=== PATIENT | female | born 1995 | race Hispanic/Latino ===

== ENCOUNTER → 2025-07-12 13:26 | Outpatient (CLI) | payer OTHER, SELFPAY ==
[2025-07-12 14:28] LABS: HEMOLYSIS < 15 (0-50); Iron 130 ug/dL (37-170)
[2025-07-12 14:29] LABS: Cholesterol 143 mg/dL (140-199); HDL Cholesterol 46 mg/dL (40-60); Triglycerides 145 mg/dL (35-150)
[2025-07-12 14:39] LABS: Percent Iron Saturation 37 % (15-50); Total Iron Binding Capacity 355 ug/dL (265-497); Transferrin 297 mg/dL (206-381)
[2025-07-12 14:59] LABS: TSH w/ Reflex to FT4 1.20 uIU/mL (0.47-4.68)
[2025-07-12 16:19] LABS: Vitamin D 25 Hydroxy (D3) 36.3 ng/mL (30.0-100.0)
== END ==
PROVIDERS: PCP Nurse Practitioner Family; Referring Provider Nurse Practitioner Family; Visit Provider Nurse Practitioner Family
DX: Z31.69 Encounter for other general counseling and advice on procreation (principal); E55.9 Vitamin D deficiency, unspecified; R53.83 Other fatigue
CPT/HCPCS: 36415; 80061; 82306; 83540; 83550; 84443

== ENCOUNTER 2025-10-04 13:34 | Emergency (ER) | payer OTHER, SELFPAY ==
[2025-10-04] VITALS (10 sets, daily range): BP systolic 95–117; BP diastolic 54–69; PULSE 98–135; RESP 16–18; TEMP 36.8–36.9; O2SAT 95–100; BMI 29.2
[2025-10-04 14:20] LABS: Add Manual Diff / Slide Review NO; Hematocrit 39.0 % (36-46); Hemoglobin 13.3 g/dL (12.0-16.0); Lymphocytes Absolute Auto 400 /uL (1100-4500); Mean Corpuscular HGB Conc 34.1 % (30-36); Mean Corpuscular Hemoglobin 27.1 PG (26-34); Mean Corpuscular Volume 79.6 fL (80-100); Platelet Count 268 X10^3/uL (150-400)
[2025-10-04 14:30] LABS: Alanine Aminotransferase 23 IU/L (<35); Albumin 4.6 g/dL (3.5-5.0); Albumin Globulin Ratio 1.2 (1.0-2.8); Alkaline Phosphatase 99 U/L (38-126); Blood Urea Nitrogen 15 mg/dL (7-17); Calcium 9.6 mg/dL (8.4-10.2); Carbon Dioxide 20 mmol/L (22-32); Chloride 106 mmol/L (98-107); Estimated Glomerular Filt Rate > 60 mL/min (>60); Globulin 4.0 g/dL (1.7-4.1); Glucose 119 mg/dL (70-99); HEMOLYSIS < 15 (0-50); Lipase 95 U/L (23-300); Potassium 4.0 mmol/L (3.4-5.1); Sodium 137 mmol/L (137-145); Total Protein 8.6 g/dL (6.3-8.2)
[2025-10-04] MEDS: ONDANSETRON 4 MG/2 ML INJ IV (14:54)
[2025-10-04] MEDS: MORPHINE 2 MG/ML INJ IV (14:54)
--- NOTE | 2025-10-04 15:10 | PC.NURSE ---
Call to lab to run urine and preg
--- NOTE | 2025-10-04 15:35 | DI.CT.S_ITS ---
PROCEDURE: CT ABDOMEN PELVIS W CON INDICATIONS: diffuse abdominal pain, n, v, d TECHNIQUE: After the administration of intravenous contrast, axial sections acquired from the lung bases to the pubic symphysis. Coronal and sagittal reformats were performed. For radiation dose reduction, the following was used: automated exposure control, adjustment of mA and/or kV according to patient size. COMPARISON: None. FINDINGS: Image quality: Diagnostic. Lower Chest: No significant findings. ABDOMEN: Liver: No solid mass. Gallbladder: Cholecystectomy Biliary ducts: No biliary dilation. Pancreas: No ductal dilation. Spleen: Size is within normal limits. Adrenal Glands: No adrenal nodules. Kidneys and Ureters: No hydronephrosis. No solid mass. No complex renal cystic lesion which requires follow up. Stomach and Bowel: The appendix measures at the upper limits of normal at 6 mm. No significant surrounding inflammatory change is seen. There is moderate wall thickening seen involving the distal colon, with mild surrounding inflammatory change. The more proximal colon is within normal limits. No dilated loops of small bowel are seen. Peritoneum: No abnormal intraperitoneal fluid. No free air. Ventral Wall: No significant ventral hernia. Abdominal Nodes: No retroperitoneal or mesenteric adenopathy by size criteria. Vessels: Aorta and inferior vena cava are normal in size. PELVIS: Pelvic Organs: No adnexal masses are seen on either side. Bladder: No bladder wall thickening, accounting for underdistention. Pelvic Nodes: No enlarged lymph nodes. Miscellaneous: No inguinal hernias are seen. Bones: No aggressive osseous abnormality. IMPRESSION: Moderate distal colonic wall thickening can be seen. Please correlate with potential infectious and inflammatory causes of colitis. No findings of perforation or abscess can be seen. The appendix measures at the upper limits of normal, yet without surrounding inflammatory change. Additional findings: Cholecystectomy the Dictated by: Ramon Diaz M.D. on 10/04/2025 at 15:27 Approved by: Ramon Diaz M.D. on 10/04/2025 at 15:30
[2025-10-04] MEDS: SODIUM CHLORIDE 0.9% 1,000 ML 1000 ML IV (15:41)
[2025-10-04 15:47] LABS: Appearance Urine UA CLOUDY; Bilirubin Urine UA NEGATIVE (NEGATIVE); Color Urine UA RED; Glucose Urine UA NEGATIVE (Negative); Ketones Urine UA NEGATIVE (NEGATIVE); Leukocyte Esterase Urine UA TRACE (NEGATIVE); Nitrite Urine UA NEGATIVE (Negative); Occult Blood Urine UA 3+ (Negative); Protein Urine UA 2+ (Negative); Specific Gravity Urine UA 1.015 (1.000-1.035); Urobilinogen Urine UA 0.2 E.U./dL (0.2)
[2025-10-04 15:49] LABS: Culture Indicated Urine Specimen Cultured; pH Urine UA 7.0 (4.5-8.0)
--- NOTE | 2025-10-04 16:24 | ED_ITS ---
HPI - Abdominal Pain <Fiona Hernandez MD - Last Filed: 10/04/25 19:33> General Chief Complaint: Abdominal Pain Stated Complaint: N/V This morning Time Seen by Provider: 10/04/25 14:14 Source: patient Mode of arrival: Ambulatory History of Present Illness HPI narrative: Patient is a 29-year-old female who presents today with abdominal pain, nausea, vomiting, diarrhea since 8:00 a.m. past medical history significant for cholecystectomy. She states that she has had 5 watery stools this morning and 1 episode of vomiting. States that her 08/17 abdominal pain started centrally and is now diffuse and nonfocal. Menses started today. She denies any dysuria, frequency, urgency. Patient ate cereal last night. No other family members with similar symptoms. She has never had similar symptoms in the past. Related Data Home Medications ?Medication ?Instructions ?Recorded ?Confirmed buspirone 15 mg tablet 15 mg PO BID Anxiety 5 07/12/25 doxepin 6 mg tablet 6 mg PO DAILY Insomnia 07/1207/12/25 venlafaxine 150 mg 150 mg PO DAILY Depression 0 07/12/25 07/12/25 capsule,extended release 24 hr Previous Rx's ?Medication ?Instructions ?Recorded ciprofloxacin HCl 500 mg tablet 500 mg PO BID 10 days #20 tabs 10/04/25 metronidazole 500 mg tablet 500 mg PO TID #30 tabs Allergies Allergy/AdvReac Type Severity Reaction Status Date / Time No Known Drug Allergies Allergy Verified 10/04/25 14:02 Review of Systems <Fiona Hernandez MD - Last Filed: 10/04/25 19:33> Review of Systems Narrative: See HPI. Patient History <Fiona Hernandez MD - Last Filed: 10/04/25 19:33> Medical History (Updated 10/04/25 @ 18:45 by Fiona Hernandez MD) Abnormal Pap smear of cervix (11/08/17) Surgical History (Updated 10/04/25 @ 18:32 by Fiona Hernandez MD) [place] teeth removed History of cholecystectomy (11/08/18) Social History Smoking Status: Current every day smoker Smoking Status: Current every day smoker Exam <Fiona Hernandez MD - Last Filed: 10/04/25 19:33> Initial Vital Signs Initial Vital Signs: Vital Signs Temperature 98.5 F 10/04/25 14:02 Pulse Rate 135 H 10/04/25 14:02 Respiratory Rate 18 10/04/25 14:02 Blood Pressure 117/67 10/04/25 14:02 Pulse Oximetry 97 10/04/25 14:02 Oxygen Delivery Method Room Air 10/04/25 14:02 Vital signs reviewed. Tachycardia (HR 135) however patient currently sitting up in actively in pain. Const Other: Well-developed and well-nourished. In acute distress. Resp Other: Clear to auscultation all lung howard. Cardio Other: Tachycardic, no murmurs, rubs, gallops. 2+ radial pulses. 2+ DP pulses. GI Other: Soft, nondistended, diffuse tenderness to palpation in left lower quadrant, suprapubic and right lower quadrant, no rebound and not peritonitic. Extrem Other: No peripheral edema. <Yohannes Edward MD - Last Filed: 10/05/25 01:45> Initial Vital Signs Initial Vital Signs: Vital Signs Temperature 98.5 F 10/04/25 14:02 Pulse Rate 135 H 10/04/25 14:02 Respiratory Rate 18 10/04/25 14:02 Blood Pressure 117/67 10/04/25 14:02 Pulse Oximetry 97 10/04/25 14:02 Oxygen Delivery Method Room Air 10/04/25 14:02 Course <Fiona Hernandez MD - Last Filed: 10/04/25 19:33> Orders Ordered: Discontinued Medications Acetaminophen (Acetaminophen 325 Mg Tablet) 650 mg PO NOW ONE Stop: 10/04/25 17:57 Last Admin: 10/04/25 18:21 Dose: 650 mg Documented By: PAPI Hydrocodone Bitart/Acetaminophen (Hydrocodone/Acet 5/325 Prepack) 1 bottle MISC DIRECTED ONE Stop: 10/04/25 19:17 Last Admin: 10/04/25 19:37 Dose: 1 bottle Documented By: PAPI Ciprofloxacin (Ciprofloxacin 250 Mg Tablet) 500 mg PO NOW ONE Stop: 10/04/25 18:24 Last Admin: 10/04/25 18:27 Dose: 500 mg Documented By: PAPI Dicyclomine HCl (Dicyclomine 10 Mg Capsule) 10 mg PO NOW ONE Stop: 10/04/25 17:06 Last Admin: 10/04/25 17:13 Dose: 10 mg Documented By: PAPI Sodium Chloride (Normal Saline 0.9%) 1,000 mls @ 1,000 mls/hr IV BOLUS ONE Stop: 10/04/25 16:22 Last Infusion: 10/04/25 17:17 Dose: Infused Documented By: Admin: 10/04/25 15:41 Dose: 1,000 mls/hr Documented By: PAPI Sodium Chloride (Normal Saline 0.45%) 1,000 mls @ 1,000 mls/hr IV BOLUS ONE Stop: 10/04/25 18:16 Last Infusion: 10/04/25 18:54 Dose: Infused Documented By: Admin: 10/04/25 17:47 Dose: 1,000 mls/hr Documented By: RAQUEL Ketorolac Tromethamine (Ketorolac 30 Mg/Ml Vial) 15 mg IV NOW ONE Stop: 10/04/25 18:23 Last Admin: 10/04/25 18:27 Dose: 15 mg Documented By: PAPI Metronidazole (Metronidazole 500 Mg Tablet) 500 mg PO NOW ONE Stop: 10/04/25 18:24 Last Admin: 10/04/25 18:27 Dose: 500 mg Documented By: PAPI Morphine Sulfate (Morphine 2 Mg/Ml Inj) 2 mg IV NOW ONE Stop: 10/04/25 14:48 Last Admin: 10/04/25 14:54 Dose: 2 mg Documented By: PAPI Nitrofurantoin Macrocrystals (Nitrofurantoin Er 100 Mg Capsule) 100 mg PO NOW ONE Stop: 10/04/25 17:06 Last Admin: 10/04/25 17:13 Dose: 100 mg Documented By: PAPI Ondansetron HCl (Ondansetron 4 Mg/2 Ml Inj) 4 mg IV NOW PRN PRN Reason: Nausea And Vomiting Last Admin: 10/04/25 14:54 Dose: 4 mg Documented By: PAPI Ondansetron HCl (Ondansetron 4 Mg Odt) 4 mg PO NOW PRN PRN Reason: Nausea And Vomiting Ondansetron HCl (Ondansetron 4 Mg Odt Prepack) 1 bottle MISC DIRECTED ONE Stop: 10/04/25 19:19 Last Admin: 10/04/25 19:37 Dose: 1 bottle Documented By: PAPI Tramadol HCl (Tramadol 50 Mg Prepack) 1 bottle MISC DIRECTED ONE Stop: 10/04/25 19:13 Reevaluation(s) Reevaluation #1: 1628 Blood pressure noted to be hypotensive however her blood pressure cuff was incorrectly positioned on her arm. Repeat 105/90s. Her pain is 5/10 now. Informed patient that her workup included urinalysis that appears to be consistent with UTI. Awaiting results of imaging. Vital Signs Vital signs: Vital Signs - 8 hr 10/04/25 18:31 10/04/25 18:32 10/04/25 18:32 Pulse Rate 117 H 109 H Respiratory Rate 16 Blood Pressure 110/68 Pulse Oximetry 96 98 10/04/25 19:00 10/04/25 19:00 Pulse Rate 98 H Respiratory Rate 16 Blood Pressure 104/63 Pulse Oximetry 96 <Yohannes Edward MD - Last Filed: 10/05/25 01:45> Orders Ordered: Discontinued Medications Acetaminophen (Acetaminophen 325 Mg Tablet) 650 mg PO NOW ONE Stop: 10/04/25 17:57 Last Admin: 10/04/25 18:21 Dose: 650 mg Documented By: PAPI Hydrocodone Bitart/Acetaminophen (Hydrocodone/Acet 5/325 Prepack) 1 bottle MISC DIRECTED ONE Stop: 10/04/25 19:17 Last Admin: 10/04/25 19:37 Dose: 1 bottle Documented By: PAPI Ciprofloxacin (Ciprofloxacin 250 Mg Tablet) 500 mg PO NOW ONE Stop: 10/04/25 18:24 Last Admin: 10/04/25 18:27 Dose: 500 mg Documented By: PAPI Dicyclomine HCl (Dicyclomine 10 Mg Capsule) 10 mg PO NOW ONE Stop: 10/04/25 17:06 Last Admin: 10/04/25 17:13 Dose: 10 mg Documented By: PAPI Sodium Chloride (Normal Saline 0.9%) 1,000 mls @ 1,000 mls/hr IV BOLUS ONE Stop: 10/04/25 16:22 Last Infusion: 10/04/25 17:17 Dose: Infused Documented By: Admin: 10/04/25 15:41 Dose: 1,000 mls/hr Documented By: PAPI Sodium Chloride (Normal Saline 0.45%) 1,000 mls @ 1,000 mls/hr IV BOLUS ONE Stop: 10/04/25 18:16 Last Infusion: 10/04/25 18:54 Dose: Infused Documented By: Admin: 10/04/25 17:47 Dose: 1,000 mls/hr Documented By: RAQUEL Ketorolac Tromethamine (Ketorolac 30 Mg/Ml Vial) 15 mg IV NOW ONE Stop: 10/04/25 18:23 Last Admin: 10/04/25 18:27 Dose: 15 mg Documented By: PAPI Metronidazole (Metronidazole 500 Mg Tablet) 500 mg PO NOW ONE Stop: 10/04/25 18:24 Last Admin: 10/04/25 18:27 Dose: 500 mg Documented By: PAPI Morphine Sulfate (Morphine 2 Mg/Ml Inj) 2 mg IV NOW ONE Stop: 10/04/25 14:48 Last Admin: 10/04/25 14:54 Dose: 2 mg Documented By: PAPI Nitrofurantoin Macrocrystals (Nitrofurantoin Er 100 Mg Capsule) 100 mg PO NOW ONE Stop: 10/04/25 17:06 Last Admin: 10/04/25 17:13 Dose: 100 mg Documented By: PAPI Ondansetron HCl (Ondansetron 4 Mg/2 Ml Inj) 4 mg IV NOW PRN PRN Reason: Nausea And Vomiting Last Admin: 10/04/25 14:54 Dose: 4 mg Documented By: PAPI Ondansetron HCl (Ondansetron 4 Mg Odt) 4 mg PO NOW PRN PRN Reason: Nausea And Vomiting Ondansetron HCl (Ondansetron 4 Mg Odt Prepack) 1 bottle MISC DIRECTED ONE Stop: 10/04/25 19:19 Last Admin: 10/04/25 19:37 Dose: 1 bottle Documented By: PAPI Tramadol HCl (Tramadol 50 Mg Prepack) 1 bottle MISC DIRECTED ONE Stop: 10/04/25 19:13 Vital Signs Vital signs: Vital Signs - 8 hr 10/04/25 18:31 10/04/25 18:32 10/04/25 18:32 Pulse Rate 117 H 109 H Respiratory Rate 16 Blood Pressure 110/68 Pulse Oximetry 96 98 10/04/25 19:00 10/04/25 19:00 Pulse Rate 98 H Respiratory Rate 16 Blood Pressure 104/63 Pulse Oximetry 96 MDM - Abdominal Pain <Fiona Hernandez MD - Last Filed: 10/04/25 19:33> Lab Data 10/04/25 14:08 10/04/25 14:08 Labs: Lab Results 10/04/25 10/04/25 10/04/25 Range/Units 14:08 14:09 15:31 WBC 13.2 H (4.5-11.0) X10^3/uL RBC 4.90 (4.0-5.2) X10^6/uL Hgb 13.3 (12.0-16.0) g/dL Hct 39.0 (36-46) % MCV 79.6 L (80-100) fL MCH 27.1 (26-34) PG MCHC 34.1 (30-36) % RDW 13.7 (11.6-14.8) % Plt Count 268 (150-400) X10^3/uL Neut % (Auto) 93.2 H (50-75) % Lymph % (Auto) 3.1 L (25-40) % Morgan % (Auto) 2.6 L (3-14) % Eos % (Auto) 0.7 L (2-4) % Baso % (Auto) 0.4 (0-2) % Neut # (Auto) 29607 H (8121-4114) /uL Lymph # (Auto) 400 L (2733-1024) /uL Morgan # (Auto) 300 (0-900) /uL Eos # (Auto) 100 (0-450) /uL Baso # (Auto) 100 (0-100) /uL Sodium 137 (137-145) mmol/L Potassium 4.0 (3.4-5.1) mmol/L Chloride 106 (98-107) mmol/L Carbon Dioxide 20 L (22-32) mmol/L BUN 15 (7-17) mg/dL Creatinine 0.70 (0.52-1.04) mg/dL Estimated GFR > 60 (>60) mL/min BUN/Creatinine Ratio 21.4 (6-22) Glucose 119 H (70-99) mg/dL Calcium 9.6 (8.4-10.2) mg/dL Total Bilirubin 0.5 (0.2-1.3) mg/dL AST 32 (14-36) IU/L ALT 23 (<35) IU/L Alkaline Phosphatase 99 (38-126) U/L Total Protein 8.6 H (6.3-8.2) g/dL Albumin 4.6 (3.5-5.0) g/dL Globulin 4.0 (1.7-4.1) g/dL Albumin/Globulin Ratio 1.2 (1.0-2.8) Lipase 95 (23-300) U/L Urine Color Red Urine Appearance Cloudy Urine pH 7.0 (4.5-8.0) Ur Specific Pollard 1.015 (1.000-1.035) Urine Protein 2+ H (Negative) Urine Glucose (UA) Negative (Negative) g/dL Urine Ketones Negative (NEGATIVE) Urine Occult Blood 3+ H (Negative) Urine Nitrate Negative (Negative) Urine Bilirubin Negative (NEGATIVE) Urine Urobilinogen 0.2 (0.2) E.U./dL Ur Leukocyte Esterase Trace H (NEGATIVE) Urine RBC >100/hpf H (0-5/HPF) Urine WBC 5-10/hpf H (0-5/HPF) Ur Squamous Epith Cells 1-5 /hpf (0-5/HPF) Urine Bacteria Few (2-10) H (None) Urine Mucus 1+ H (Negative) Ur Culture Indicated? Specimen cultured Vol Urine Centrifuged 10ml (spun) Urine Test Negative (Negative) SARS-CoV-2 (PCR) Negative (Negative) Influenza A (RT-PCR) Flu a negative (NEGATIVE) Influenza B (RT-PCR) Flu b negative (NEGATIVE) RSV (PCR) Negative (Negative) Imaging Data CT scan - abdomen/pelvis: My Impression: Moderate thickening of the colon without any free air. Radiologist's Impression: ABDOMEN: Liver: No solid mass. Gallbladder: Cholecystectomy Biliary ducts: No biliary dilation. Pancreas: No ductal dilation. Spleen: Size is within normal limits. Adrenal Glands: No adrenal nodules. Kidneys and Ureters: No hydronephrosis. No solid mass. No complex renal cystic lesion which requires follow up. Stomach and Bowel: The appendix measures at the upper limits of normal at 6 mm. No significant surrounding inflammatory change is seen.There is moderate wall thickening seen involving the distal colon, with mild surrounding inflammatory change. The more proximal colon is within normal limits. No dilated loops of small bowel are seen. Peritoneum: No abnormal intraperitoneal fluid. No free air. Ventral Wall: No significant ventral hernia. Abdominal Nodes: No retroperitoneal or mesenteric adenopathy by size criteria. Vessels: Aorta and inferior vena cava are normal in size. PELVIS: Pelvic Organs: No adnexal masses are seen on either side. Bladder: No bladder wall thickening, accounting for underdistention. Pelvic Nodes: No enlarged lymph nodes. Miscellaneous: No inguinal hernias are seen. Bones: No aggressive osseous abnormality. IMPRESSION: Moderate distal colonic wall thickening can be seen. Please correlate with potential infectious and inflammatory causes of colitis. No findings of perforation or abscess can be seen. The appendix measures at the upper limits of normal, yet without surrounding inflammatory change. MDM Narrative Medical decision making narrative: Patient is a 29-year-old with history of cholecystectomy who developed acute onset of diffuse abdominal pain, nausea, vomiting, diarrhea. On arrival, she was tachycardic and visibly in pain. Abdominal exam was significant for diffuse tenderness however no concern for acute abdomen. Differential diagnosis include: Appendicitis, gastroenteritis, colitis, UTI, influenza, , other. Laboratory exam significant for leukocytosis which patient meets SIRS criteria for however she did not clinically appear to be septic therefore sepsis protocol was not initiated. Leukocytosis (WBC 13.2), hemoglobin normal, no thrombocytopenia. No LEXI, normal electrolytes, no transaminitis, lipase normal. Urinalysis with hematuria and minimal pyuria with mild leukocytosis. Her hCG was negative. CT significant for colonic wall thickening consistent with infectious versus inflammatory colitis. Plan: Zofran, pain control, p.o. challenge, discharged home with preoperative management. 10/04/25, 1830Wagner. Signout from Dr Hernandez. Lab data: White blood cell count 24548, hemoglobin 13.3, platelets adequate. Glucose 119. Normal renal function, electrolytes, serum CO2 20 mild decreased. Liver functions normal. Lipase normal. Urinalysis with hematuria and minimal white blood cell count, nitrate negative, few bacteria, urine culture pending. HCG negative. COVID influenza RSV negative. CT abdomen and pelvis. IMPRESSION: Moderate distal colonic wall thickening can be seen. Please correlate with potential infectious and inflammatory causes of colitis. No findings of perforation or abscess can be seen.The appendix measures at the upper limits of normal, yet without surrounding inflammatory change. See radiology report. Urinalysis with blood and minimal white blood cells few bacteria negative nitrite, urine cultured. Patient given nitrofurantoin oral for possible UTI. CT findings consistent with colitis and upper limit the appendix size without periappendiceal stranding. We will give oral ciprofloxacin/Flagyl for GI coverage, should provide UTI coverage as well. Patient requesting additional pain control measures, has received fluids and IV opiate. We will add IV Toradol. Normotensive, initial tachycardia seems to be improving. Further observe for symptomatic improvement, anticipate discharge. <Yohannes Edward MD - Last Filed: 10/05/25 01:45> Lab Data Attestation: I reviewed the patient's lab results. Lab results narrative: White blood cell count 49059, hemoglobin 13.3, platelets adequate. Glucose 119. Normal renal function, electrolytes, serum CO2 20 mild decreased. Liver functions normal. Lipase normal. Urinalysis with hematuria and minimal white blood cell count, nitrate negative, few bacteria, urine culture pending. COVID influenza RSV negative. Labs: Lab Results 10/04/25 10/04/25 10/04/25 Range/Units 14:08 14:09 15:31 WBC 13.2 H (4.5-11.0) X10^3/uL RBC 4.90 (4.0-5.2) X10^6/uL Hgb 13.3 (12.0-16.0) g/dL Hct 39.0 (36-46) % MCV 79.6 L (80-100) fL MCH 27.1 (26-34) PG MCHC 34.1 (30-36) % RDW 13.7 (11.6-14.8) % Plt Count 268 (150-400) X10^3/uL Neut % (Auto) 93.2 H (50-75) % Lymph % (Auto) 3.1 L (25-40) % Morgan % (Auto) 2.6 L (3-14) % Eos % (Auto) 0.7 L (2-4) % Baso % (Auto) 0.4 (0-2) % Neut # (Auto) 58374 H (8385-9683) /uL Lymph # (Auto) 400 L (8594-0344) /uL Morgan # (Auto) 300 (0-900) /uL Eos # (Auto) 100 (0-450) /uL Baso # (Auto) 100 (0-100) /uL Sodium 137 (137-145) mmol/L Potassium 4.0 (3.4-5.1) mmol/L Chloride 106 (98-107) mmol/L Carbon Dioxide 20 L (22-32) mmol/L BUN 15 (7-17) mg/dL Creatinine 0.70 (0.52-1.04) mg/dL Estimated GFR > 60 (>60) mL/min BUN/Creatinine Ratio 21.4 (6-22) Glucose 119 H (70-99) mg/dL Calcium 9.6 (8.4-10.2) mg/dL Total Bilirubin 0.5 (0.2-1.3) mg/dL AST 32 (14-36) IU/L ALT 23 (<35) IU/L Alkaline Phosphatase 99 (38-126) U/L Total Protein 8.6 H (6.3-8.2) g/dL Albumin 4.6 (3.5-5.0) g/dL Globulin 4.0 (1.7-4.1) g/dL Albumin/Globulin Ratio 1.2 (1.0-2.8) Lipase 95 (23-300) U/L Urine Color Red Urine Appearance Cloudy Urine pH 7.0 (4.5-8.0) Ur Specific Pollard 1.015 (1.000-1.035) Urine Protein 2+ H (Negative) Urine Glucose (UA) Negative (Negative) g/dL Urine Ketones Negative (NEGATIVE) Urine Occult Blood 3+ H (Negative) Urine Nitrate Negative (Negative) Urine Bilirubin Negative (NEGATIVE) Urine Urobilinogen 0.2 (0.2) E.U./dL Ur Leukocyte Esterase Trace H (NEGATIVE) Urine RBC >100/hpf H (0-5/HPF) Urine WBC 5-10/hpf H (0-5/HPF) Ur Squamous Epith Cells 1-5 /hpf (0-5/HPF) Urine Bacteria Few (2-10) H (None) Urine Mucus 1+ H (Negative) Ur Culture Indicated? Specimen cultured Vol Urine Centrifuged 10ml (spun) Urine Test Negative (Negative) SARS-CoV-2 (PCR) Negative (Negative) Influenza A (RT-PCR) Flu a negative (NEGATIVE) Influenza B (RT-PCR) Flu b negative (NEGATIVE) RSV (PCR) Negative (Negative) [facility] Narrative Medical decision making narrative: Patient is a 29-year-old with history of cholecystectomy who developed acute onset of diffuse abdominal pain, nausea, vomiting, diarrhea. On arrival, she was tachycardic and visibly in pain. Abdominal exam was significant for diffuse tenderness however no concern for acute abdomen. Differential diagnosis include: Appendicitis, gastroenteritis, colitis, UTI, influenza, , other. Laboratory exam significant for leukocytosis which patient meets SIRS criteria for however she did not clinically appear to be septic therefore sepsis protocol was not initiated. Leukocytosis (WBC 13.2), hemoglobin normal, no thrombocytopenia. No LEXI, normal electrolytes, no transaminitis, lipase normal. Urinalysis with hematuria and minimal pyuria with mild leukocytosis. Her hCG was negative. CT significant for colonic wall thickening consistent with infectious versus inflammatory colitis. Plan: Zofran, pain control, p.o. challenge, discharged home with preoperative management. 10/04/25, 1830, [place]. Signout from Dr Hernandez. 29-year-old female with history of prior remote cholecystectomy, complains of central abdominal discomfort today, with predominance of nonbloody loose stool diarrhea, some nausea and nonbloody emesis. Initial sinus tachycardia in context of pain. Given fluids and analgesics. Diffuse abdominal tenderness on examination. Labs were sent. Mild leukocytosis, liver functions and lipase normal, urinalysis with hematuria but minimal bacteria and nitrate negative with urine culture requested. Oral dose of nitrofurantoin given in case of UTI. HCG negative. CT abdomen and pelvis ordered. Results are pending. Assumed care. Lab data: White blood cell count 13910, hemoglobin 13.3, platelets adequate. Glucose 119. Normal renal function, electrolytes, serum CO2 20 mild decreased. Liver functions normal. Lipase normal. Urinalysis with hematuria and minimal white blood cell count, nitrate negative, few bacteria, urine culture pending. HCG negative. COVID influenza RSV negative. CT abdomen and pelvis. IMPRESSION: Moderate distal colonic wall thickening can be seen. Please correlate with potential infectious and inflammatory causes of colitis. No findings of perforation or abscess can be seen.The appendix measures at the upper limits of normal, yet without surrounding inflammatory change. See radiology report. Urinalysis with blood and minimal white blood cells few bacteria negative nitrite, urine cultured. Patient given nitrofurantoin oral for possible UTI. CT findings consistent with colitis and upper limit the appendix size without periappendiceal stranding. We will give oral ciprofloxacin/Flagyl for GI coverage, should provide UTI coverage as well. Patient requesting additional pain control measures, has received fluids and IV opiate. We will add IV Toradol. Normotensive, initial tachycardia seems to be improving. Further observe for symptomatic improvement, anticipate discharge. Heart rate further improved. Patient expressed to nursing that she feels better and would like to go home. Prescription sent to her requested pharmacy for further course of antibiotics ciprofloxacin and metronidazole. Reiterated need to avoid alcohol while taking metronidazole, as this combination/interaction can induce vomiting. Discharge Plan Departure Patient Disposition: Home Clinical Impression: Colitis Instructions: DI for Colitis Activity Restrictions/Additional Instructions: Abdominal pain with nausea and vomiting and diarrhea, remote history of gallbladder surgery, urinalysis with blood and a few bacteria, urine culture at this time is pending. Initial antibiotics for possible urine infection. CT scan abdomen and pelvis eventually done, showing an enlarged appendix but with no appendix area inflammation, and did show inflammation of the colon consistent with colitis. In context of your nausea vomiting diarrhea, colitis (inflammation of the colon) diagnosis fits in well with imaging. There does not seem to be any complicated colitis at present such as bowel obstruction or abscess or perforation on imaging study. We additionally gave antibiotics ciprofloxacin and metronidazole/Flagyl to cover for colitis, which also would be coverage for urinary tract infection if your urine culture happens to be positive. Further antibiotic prescription sent to your requested pharmacy. You had an initial fast heart rate, improved with pain control and IV fluids. Home pack of hydrocodone/acetaminophen to use if needed for additional pain measures if needed. Avoid use of alcohol while taking metronidazole, as it can induce combination effect of nausea and vomiting. Prescriptions: New ciprofloxacin HCl 500 mg tablet 500 mg PO BID 10 Days Qty: 20 0RF metronidazole 500 mg tablet 500 mg PO TID Qty: 30 0RF No Action venlafaxine 150 mg capsule,extended release 24hr 150 mg PO DAILY buspirone 15 mg tablet 15 mg PO BID doxepin 6 mg tablet 6 mg PO DAILY Referrals: Vielka Velez, VALERIE-BC [Primary Care Provider, Family Practice] Stand Alone Forms: Patient Portal/API
[2025-10-04 17:00] LABS: COVID-19 CEPHEID 4-PLEX PCR Negative (Negative); Influenza A - CEPHEID Flu A NEGATIVE (NEGATIVE); Influenza B - CEPHEID Flu B NEGATIVE (NEGATIVE)
[2025-10-04] MEDS: NITROFURANTOIN ER 100 MG CAPSULE PO (17:13)
[2025-10-04] MEDS: DICYCLOMINE 10 MG CAPSULE PO (17:13)
[2025-10-04] MEDS: SODIUM CHLORIDE 0.45% 1,000 ML 1000 ML IV (17:47)
[2025-10-04] MEDS: ACETAMINOPHEN 325 MG TABLET 650 MG PO (18:21)
[2025-10-04] MEDS: KETOROLAC 30 MG/ML VIAL 15 MG IV (18:27)
[2025-10-04] MEDS: CIPROFLOXACIN 250 MG TABLET 500 MG PO (18:27)
--- NOTE | 2025-10-04 19:15 | PC.NURSE ---
1914: Pt is tolerating water and activity
[2025-10-04] MEDS: ONDANSETRON 4 MG ODT PREPACK 1 BOTTLE MISC (19:37)
== END 2025-10-04 19:38 | disposition home or self-care (01) ==
PROVIDERS: Student in an Organized Health Care Education/Training Program; Emergency Provider Emergency Medicine; PCP Nurse Practitioner Family
DX: K52.9 Noninfective gastroenteritis and colitis, unspecified (principal); R00.0 Tachycardia, unspecified; Z90.49 Acquired absence of other specified parts of digestive tract
CPT/HCPCS: 36415; 74177; 80053; 81003; 81015; 81025; 83690; 85025; 87086; 87637; 96361; 96374; 96375; 99284; J1885; J2270; J2405; J7030; J7050; Q9967